=== PATIENT | female | born 1970 | race Two or more races ===

== ENCOUNTER 2016-06-19 19:39 | Emergency (ER) | payer BC ==
--- NOTE | 2016-06-20 01:23 | ER Document Report ---
ED General - General Chief Complaint: Diarrhea Stated Complaint: BACK PAIN, ABDOMINAL PAIN Notes: Patient is 45-year-old female presents with complaints of pain over the right abdomen that radiates around to the right back. She says pain is the right abdomen overlying lower ribs. No coughing. She says her stool has been soft. She is feel bloated. Some nausea. No fevers. She saw her doctor. Blood work was drawn and she was tested for H. pylori. This came back positive and patient was placed on amoxicillin, clindamycin, and Nexium. Patient says she continues to have pain and therefore came to the ER. TRAVEL OUTSIDE OF THE [place] IN LAST 30 DAYS: No - Related Data Allergies/Adverse Reactions: No Known Allergies Allergy (Verified 06/19/16 19:53) Past Medical History - Social History Smoking Status: Never Smoker Frequency of alcohol use: None Drug Abuse: None Family History: Reviewed & Not Pertinent Pulmonary Medical History: Reports: Hx Asthma Neurological Medical History: Reports: Hx Migraine Renal/ Medical History: Denies: Hx Peritoneal Dialysis Psychiatric Medical History: Denies: Hx Depression Past Surgical History: Reports: Hx Hysterectomy, Hx Orthopedic Surgery - Right Shoulder Review of Systems - Review of Systems Notes: My Normal Review Basic REVIEW OF SYSTEMS: CONSTITUTIONAL : Denies fever, chills, or sweats. Denies recent illness. EENT: Denies eye, ear, throat, or mouth pain or symptoms. Denies nasal or sinus congestion. CARDIOVASCULAR: Pain over right lower ribs. RESPIRATORY: Denies cough, cold, or chest congestion. Denies shortness of breath, difficulty breathing, or wheezing. GASTROINTESTINAL: Right upper quadrant abdominal pain. Some nausea. Soft stool. No blood in stool. GENITOURINARY: Denies difficulty urinating, painful urination, burning, frequency, or blood in urine. FEMALE GENITOURINARY: Denies vaginal bleeding, abnormal or irregular periods. MUSCULOSKELETAL: Denies neck or back pain or joint pain or swelling. SKIN: Denies rash or skin lesions. NEUROLOGICAL: Denies altered mental status or loss of consciousness. Denies headache. Denies weakness or paralysis or loss of use of either side. Denies problems with gait or speech. Denies sensory or motor loss. ALL OTHER SYSTEMS REVIEWED AND NEGATIVE. Physical Exam - Vital signs Vitals: Temp Pulse Resp BP Pulse Ox 98.5 F 73 16 133/87 H 98 06/19/16 19:55 06/19/16 19:55 06/19/16 19:55 06/19/16 19:55 06/19/16 19:55 - Notes Notes: General Appearance: Well nourished, alert, cooperative, no acute distress, some obvious discomfort. Vitals: reviewed, See vital signs table. Head: no swelling or tenderness to the head Eyes: PERRL, EOMI, Conjuctiva clear Mouth: No decreasd moisture Throat: No tonsillar inflammation, No airway obstruction, No lymphadenopathy Neck: Supple, no neck tenderness, Lungs: No wheezing, No rales, No rhonci, No accessory muscle use, good air exchange bilaterally. Heart: Normal rate, Regular rythm, No murmur, no rub Chest wall: Pain to palpation of right lower ribs. Back: Pain palpation over rib angles on the right lower back. Abdomen: Normal BS, soft, No rigidity, mild right upper quad abdominal tenderness to palpation, No guarding, no rebound, no abdominal masses, no organomegaly Extremities: strength 5/5 in all extremities, good pulses in all extremities, no swelling or tenderness in the extremities, no edema. Skin: warm, dry, appropriate color, no rash Neuro: speech clear, oriented x 3, normal affect, responds appropriately to questions. Course - Vital Signs Vital signs: Temp Pulse Resp BP Pulse Ox 98.2 F 79 16 130/82 H 99 06/20/16 05:30 06/20/16 05:30 06/20/16 05:30 06/20/16 05:30 06/20/16 05:30 - Laboratory Result Diagrams: 06/20/16 01:30 06/20/16 01:30 Laboratory results interpreted by me: 06/20/16 06/20/16 06/20/16 01:30 01:30 02:50 Seg Neutrophils % 38.7 L Lymphocytes % 46.1 H Eosinophils % 7.0 H Total Protein 8.7 H Ur Leukocyte Esterase MODERATE H - Transfer of Care Notes: 06/21/16 04:52 Patient's pain is also epigastric upper quadrant. I therefore did obtain an ultrasound. Ultrasound shows no evidence of gallbladder disease. Patient is H. pylori positive poor her outpatient workup. We'll place on Carafate. Informed her to return to ER if she has worsening pain, vomiting blood, blood in her stools, or fevers. Encourage her to continue follow closely with her primary care doctor. Patient agrees with plan and will be discharged home. Dictation of this chart was performed using voice recognition software; therefore, there may be some unintended grammatical errors. Discharge - Discharge Clinical Impression: Abdominal pain Qualifiers: Abdominal location: right lower quadrant Qualified Code(s): R10.31 - Right lower quadrant pain Condition: Good Disposition: HOME, SELF-CARE Additional Instructions: ABDOMINAL PAIN: There are many causes of abdominal pain. Pain can mean a serious problem requiring surgery (such as appendicitis). It can also be an innocent problem that goes away on its own (such as a viral infection). Often, time must pass to determine the cause of pain. The physician does not feel that hospitalization is necessary, at present. Things may change within the next 24 hours. Call the doctor or come back for re- examination if any problems occur, such as: (1) Pain that becomes more severe, steady, or becomes concentrated in one specific area. Also, pain that is more severe with movement or coughing. (2) Vomiting that persists or becomes more frequent. (3) Blood in the vomitus, urine, or bowel movements. Blood in the stool may have a tarry or black appearance. (4) Shaking chills or fever greater than 100 degrees F. (5) The abdomen becomes more distended or swollen. (6) Bowel movements cease. (7) Failure to improve as expected. NORMAL EXAM AND WORKUP: At this time, your examination and workup show no significant abnormality. No significant abnormal physical findings are noted. All laboratory, EKG, and imaging (ultrasound) studies that were ordered show no significant abnormality. Although your examination and all studies that were ordered showed no significant abnormal finding, there are no examinations and no studies that are 100% accurate. There is always the possibility that some abnormality could exist and not be detected with physical examination or within the limits and capabilities of laboratory and other studies. You should return or follow up as you were instructed on your visit today for further evaluation if your symptoms do not resolve. ANTINAUSEA MEDICATION: You have been given a medication to suppress nausea and vomiting. This type of medication can be given as a shot, pill, or suppository. It will usually last for many hours. Pills and shots usually last six to eight hours, suppositories last about 12 hours. For the typical illness, only one or two doses of the medication may be necessary. Mild lightheadedness may occur. This type of medicine can cause drowsiness. Do not drive or operate dangerous machinery while under its influence. Do not mix with alcohol. See your doctor at once if you have muscle spasms or tightness, or uncontrollable motions (particularly of the neck, mouth, or jaw). Persistent vomiting or severe lightheadedness should also be evaluated by the physician. FOLLOW-UP CARE: If you have been referred to a physician for follow-up care, call the physician s office for an appointment as you were instructed or within the next two days. If you experience worsening or a significant change in your symptoms, notify the physician immediately or return to the Emergency Department at any time for re-evaluation. FOLLOW-UP CARE: Please return to the ER immediately if you have worsening pain, fevers, intractable vomiting, blood in your stool, black or tarry stools, or feel unwell. Please call Dr. Mckeon, GI physician, if your symptoms are not improving in the next week. Prescriptions: Ondansetron [Zofran Odt 4 mg Tablet] 1 tab PO Q4H PRN #15 tab.rapdis PRN Reason: For Nausea/Vomiting Sucralfate [Carafate 1 gm Tablet] 1 gm PO ACHS #120 tablet Forms: Return to Work Referrals: RESHMA MCKEON MD [ACTIVE STAFF] - Follow up in 3-5 days
[2016-06-20 01:40] LABS: ABSOLUTE EOSINOPHILS # (AUTO) 0.6 10^3/uL (0.0-0.6); ABSOLUTE MONOCYTES (AUTO) 0.7 10^3/uL (0.1-1.4); ABSOLUTE NEUT (AUTO) 3.3 10^3/uL (1.7-8.2); BASOPHILS % (AUTO) 0.5 % (0-2); HEMATOCRIT 41.5 % (36.0-47.0); HEMOGLOBIN 14.5 g/dL (12.0-15.5); LYMPHOCYTES % (AUTO) 46.1 % (13-45); MEAN CORPUSCULAR HEMOGLOBIN 31.8 pg (27.0-33.4); MEAN CORPUSCULAR HGB CONC 34.9 g/dL (32.0-36.0); MEAN CORPUSCULAR VOLUME 91 fl (80-97); MONOCYTES % (AUTO) 7.7 % (3-13); RED BLOOD COUNT 4.55 10^6/uL (3.72-5.28); RED CELL DISTRIBUTION WIDTH 13.1 % (11.5-14.0); SEGMENTED NEUTROPHILS % (AUTO) 38.7 % (42-78); WHITE BLOOD COUNT 8.6 10^3/uL (4.0-10.5)
[2016-06-20 01:54] LABS: ALANINE AMINOTRANSFERASE 30 U/L (9-52); ALBUMIN 4.8 g/dL (3.5-5.0); ALKALINE PHOSPHATASE 109 U/L (38-126); ANION GAP 14 (5-19); ASPARTATE AMINO TRANSFERASE 25 U/L (14-36); BILIRUBIN,DIRECT 0.3 mg/dL (0.0-0.4); BILIRUBIN,TOTAL 0.9 mg/dL (0.2-1.3); BLOOD UREA NITROGEN 17 mg/dL (7-20); CALCIUM 9.7 mg/dL (8.4-10.2); CARBON DIOXIDE 25 mmol/L (22-30); CHLORIDE 106 mmol/L (98-107); CREATININE RESULT 0.78 mg/dL (0.52-1.25); GLUCOSE 103 mg/dL (75-110); LIPASE 220.9 U/L (23-300); POTASSIUM 4.3 mmol/L (3.6-5.0); SODIUM 144.7 mmol/L (137-145); TOTAL PROTEIN 8.7 g/dL (6.3-8.2)
[2016-06-20 03:08] LABS: APPEARANCE,URINE SLIGHTLY-CLOUDY; BILIRUBIN,URINE NEGATIVE (NEGATIVE); GLUCOSE, URINE NEGATIVE (NEGATIVE); KETONES,URINE NEGATIVE (NEGATIVE); LEUKOCYTE ESTERASE,URINE MODERATE (NEGATIVE); NITRITE,URINE NEGATIVE (NEGATIVE); PROTEIN,URINE NEGATIVE (NEGATIVE); URINE SPECIFIC GRAVITY 1.021; UROBILINOGEN,URINE NEGATIVE mg/dL (<2.0)
[2016-06-20] MEDS ORDERED: MAG HYDROX/AL HYDROX/SIMETH SUSP 30 ML UDCUP PO ONE (03:37)
[2016-06-20] MEDS ORDERED: METOCLOPRAMIDE HCL ORAL SOLN 10 MG/10 ML UDCUP PO ONE (03:37)
[2016-06-20] MEDS ORDERED: LIDOCAINE 2% VISCOUS SOLN 20 ML UDCUP PO ONE (03:37)
[2016-06-20 06:06] VITALS: BP 130/82
== END 2016-06-20 05:33 | disposition home or self-care (01) ==
LOC: ER 19:39
DX: R10.31 Right lower quadrant pain (principal); R10.13 Epigastric pain; R19.7 Diarrhea, unspecified; M54.9 Dorsalgia, unspecified; Z90.710 Acquired absence of both cervix and uterus
CPT/HCPCS: 99284; 36415; 83690; 85025; 81025; 80053; 81001; 71020; 76705; 93976; J3490